=== PATIENT | male | born 1980 ===

== ENCOUNTER 2020-10-28 18:19 | Outpatient (REF) | payer MEDICAID, SELFPAY ==
[2020-10-28 20:19] LABS: HCT 40.7 % (40.0-50.0); HGB 13.6 g/dL (13.5-17.5); MCH 30.1 pg (27.0-33.0); MCHC 33.4 % (32.0-36.0); MPV 9.1 fL (8.0-11.0); Platelet Count 321 10^3/uL (130-400); RBC 4.52 10^6/uL (4.36-5.78); RDW-SD 42.7 fL; WBC 9.41 10^3/uL (4.4-10.8)
[2020-10-28 20:36] LABS: ALT 69 U/L (16-63); AST 30 U/L (15-37); Albumin 3.9 g/dL (3.4-5.0); Alkaline Phosphatase 71 U/L (46-116); Anion Gap 8.5 mmol/L (3-11); BUN 8 mg/dL (7-18); Bilirubin, Total 0.4 mg/dL (0.2-1.0); CO2 30.5 mmol/L (21.0-32.0); CREATININE 0.8 mg/dL (0.70-1.30); Calcium 9.2 mg/dL (8.5-10.1); Chloride 103 mmol/L (98-107); Glucose 77 mg/dL (74-106); Potassium 3.3 mmol/L (3.5-5.1); Sodium 142 mmol/L (136-145); Total Protein 8.1 g/dL (6.4-8.2)
[2020-11-01 10:20] LABS: HBs Antibody, Quant <3.1 mIU/mL (See Note); Hepatitis B Surface Ab Negative (See Note)
[2020-11-01 10:25] LABS: Hepatitis B Surface Ag Negative (Negative)
[2020-11-01 11:07] LABS: Hep B Core Antibody Negative (Negative)
[2020-11-01 11:39] LABS: Hepatitis C Ab w Rflx HCV PCR Reactive (Negative)
[2020-11-01 11:40] LABS: Hep A Total Ab w Rflx IgM Negative (Negative)
[2020-11-01 15:17] LABS: HCV RNA Qualitative Detected (Undetected)
== END 2020-10-28 18:20 | disposition home or self-care (01) ==
LOC: NCHCN 18:19
PROVIDERS: Visit Provider Registered Nurse
DX: Z11.59 Encounter for screening for other viral diseases (principal); F19.230 Other psychoactive substance dependence with withdrawal, uncomplicated; E66.9 Obesity, unspecified
CPT/HCPCS: 80053; 85027; 86704; 86706; 86709; 86803; 87340; 87522

== ENCOUNTER 2020-11-19 10:12 | Outpatient (REF) | payer MEDICAID, SELFPAY ==
[2020-11-19 15:15] LABS: Prothrombin Time 10.5 sec (9.3-11.0)
[2020-11-23 21:09] LABS: HCV Genotype 1a (Undetected)
== END 2020-11-19 10:13 | disposition home or self-care (01) ==
LOC: NCHCN 10:12
PROVIDERS: Visit Provider Registered Nurse
DX: B19.20 Unspecified viral hepatitis C without hepatic coma (principal)
CPT/HCPCS: 85610; 87521

== ENCOUNTER 2020-12-16 09:25 | Outpatient (REF) | payer MEDICAID, SELFPAY ==
[2020-12-16 16:42] LABS: ESR 18 mm/hr (0-15)
[2020-12-16 17:13] LABS: C-Reactive Protein 0.29 mg/dL (0.0-0.3)
[2020-12-18 13:03] LABS: HIV-1/2 Ag & Ab Screen Negative (Negative)
== END 2020-12-16 09:26 | disposition home or self-care (01) ==
LOC: NCHCN 09:25
PROVIDERS: Visit Provider Registered Nurse
DX: M06.9 Rheumatoid arthritis, unspecified (principal); B19.20 Unspecified viral hepatitis C without hepatic coma
CPT/HCPCS: 85652; 87389; 86140

== ENCOUNTER 2020-12-30 20:59 | Outpatient (REF) | payer MEDICAID, SELFPAY ==
[2021-01-01 12:03] LABS: COVID-19 RT-PCR UVMMC Result Negative (Negative)
== END 2020-12-30 21:00 | disposition home or self-care (01) ==
LOC: NCHCN 20:59
PROVIDERS: Visit Provider Registered Nurse
DX: Z20.822 Contact with and (suspected) exposure to COVID-19 (principal); J06.9 Acute upper respiratory infection, unspecified
CPT/HCPCS: U0003